=== PATIENT | male | born 1960 | race Hispanic/Latino ===

== ENCOUNTER 2017-08-16 06:22 | Observation (INO) | payer OTHER ==
[2017-08-15 12:19] VITALS: BP 154/95
[2017-08-15] MEDS: CEFAZOLIN SODIUM 1 GM VIAL IVP SCH (13:45)
[2017-08-16] VITALS (22 sets, daily range): BP systolic 125–157; BP diastolic 74–109
[~2017-08-16] VITALS: Ht 175.3 cm; Wt 96.2 kg
[~2017-08-16 06:22] MED LIST: IRBE150T27 PO
[2017-08-16] MEDS ORDERED: LACTATED RINGERS 1000ML 1,000 ML IV ONE (07:19)
[2017-08-16] MEDS ORDERED: GLYCOPYRROLATE 0.2 MG/ML 5 ML VIAL ONE (07:32)
[2017-08-16] MEDS ORDERED: LIDOCAINE PF 2% 5ML ABBOJECT ONE (07:32)
[2017-08-16] MEDS ORDERED: DEXAMETHASONE SOD PHOSPHATE 10MG/ML 1ML VIAL ONE (07:32)
[2017-08-16] MEDS ORDERED: ONDANSETRON HCL 4 MG/2 ML VIAL ONE (07:32)
[2017-08-16] MEDS ORDERED: MIDAZOLAM HCL 1 MG/ML 2ML VIAL ONE (07:33)
[2017-08-16] MEDS ORDERED: PROPOFOL 10 MG/ML 20ML VIAL IV ONE (07:33)
[2017-08-16] MEDS ORDERED: FENTANYL CITRATE PF 50 MCG/1 ML 2ML VIAL ONE (07:33)
[2017-08-16] MEDS: CEFAZOLIN SODIUM 1 GM VIAL IVP SCH ×3 (08:00→21:19)
[2017-08-16] MEDS ORDERED: EPHEDRINE SULFATE 50 MG/ML AMPULE ONE (08:49)
[2017-08-16] MEDS ORDERED: MEPERIDINE-PF 25 MG/ML SYG ONE ×2 (10:05→10:24)
[2017-08-16 10:37] LABS: HEMATOCRIT 39.1 % (42-54)
[2017-08-16] MEDS ORDERED: PROMETHAZINE HCL 25 MG/ML 1ML AMPULE IM PRN (13:30)
[2017-08-16] MEDS ORDERED: MORPHINE SULFATE 10 MG/ML 1ML SYG IM PRN (13:30)
[2017-08-16] MEDS ORDERED: BISACODYL 10 MG SUPP.RECT RC PRN (13:30)
[2017-08-16] MEDS ORDERED: MAGNESIUM HYDROXIDE 30 ML/UDCUP PO PRN (13:30)
[2017-08-16] MEDS: DEXTROSE 5%-LACTATED RINGERS 1,000 ML IV SCH ×2 (13:44→22:01)
[2017-08-16] MEDS ORDERED: HYDRALAZINE HCL 20 MG/ML VIAL ONE (14:54)
[2017-08-16] MEDS ORDERED: HYDRALAZINE HCL 20 MG/ML VIAL IV PRN (15:00)
[2017-08-16] MEDS ORDERED: METOPROLOL TARTRATE 1 MG/ML 5ML VIAL IV ONE ×2 (16:11→17:20)
[2017-08-16 16:57] LABS: CREATINE KINASE MB 2.4 ng/mL (0.5-3.6); CREATINE KINASE, TOTAL 218 U/L (21-232); MYOGLOBIN 118 ng/mL (10-92); TROPONIN I < 0.04 ng/mL (0.00-0.06)
[2017-08-16] MEDS ORDERED: ONDANSETRON HCL MDV 20ML 2 MG/ML VIAL IVP PRN (17:00)
[2017-08-16 18:21] LABS: HEMATOCRIT 41.2 % (42-54)
[2017-08-16] MEDS: TRAMADOL HCL 50 MG TABLET PO PRN (21:21)
[2017-08-16] MEDS ORDERED: ACETAMINOPHEN 325 MG TAB PO PRN (22:30)
[2017-08-16] MEDS ORDERED: ACETAMINOPHEN 325 MG TAB ONE (22:48)
[2017-08-16] MEDS: MORPHINE SULFATE 4 MG/1ML SYG IVP PRN (23:52)
[2017-08-17] VITALS (8 sets, daily range): BP systolic 138–167; BP diastolic 83–100
[2017-08-17 00:25] LABS: HEMATOCRIT 40.1 % (42-54)
[2017-08-17] MEDS: TRAMADOL HCL 50 MG TABLET PO PRN ×3 (03:23→17:34)
[2017-08-17 06:12] LABS: HEMATOCRIT 39.9 % (42-54)
[2017-08-17] MEDS: CEFAZOLIN SODIUM 1 GM VIAL IVP SCH (06:40)
[2017-08-17] MEDS: MORPHINE SULFATE 4 MG/1ML SYG IVP PRN ×2 (07:50→13:57)
[2017-08-17] MEDS ORDERED: TRAM50TA2 PO (09:59)
[2017-08-17] MEDS ORDERED: METOPROLOL TARTRATE 1 MG/ML 5ML VIAL IV SCH (13:33)
[2017-08-17] MEDS ORDERED: METOPROLOL TARTRATE 1 MG/ML 5ML VIAL IV ONE (13:40)
[2017-08-17] MEDS: METOPROLOL TARTRATE 25 MG TAB PO SCH ×2 (17:27→19:47)
[2017-08-18] VITALS (8 sets, daily range): BP systolic 135–164; BP diastolic 90–104
[2017-08-18] MEDS: MORPHINE SULFATE 4 MG/1ML SYG IVP PRN ×2 (02:16→07:50)
[2017-08-18] MEDS: METOPROLOL TARTRATE 25 MG TAB PO SCH (07:49)
[2017-08-18] MEDS: TRAMADOL HCL 50 MG TABLET PO PRN (16:49)
[2017-08-18] MEDS: METOPROLOL TARTRATE 1 MG/ML 5ML VIAL IV SCH (17:28)
[2017-08-18] MEDS: METOPROLOL TARTRATE 50 MG TAB PO SCH (21:29)
[2017-08-19] MEDS: TRAMADOL HCL 50 MG TABLET PO PRN ×3 (01:18→13:57)
[2017-08-19 05:00] VITALS: BP 126/81
[2017-08-19 07:39] VITALS: BP 144/95
[2017-08-19] MEDS: METOPROLOL TARTRATE 50 MG TAB PO SCH (08:40)
[2017-08-19] MEDS ORDERED: METO50 PO (09:41)
[2017-08-19 11:26] VITALS: BP 131/83
[2017-08-19] MEDS: METOPROLOL TARTRATE 1 MG/ML 5ML VIAL IV SCH (14:55)
[2017-08-19 16:14] VITALS: BP 140/98
== END 2017-08-19 17:51 | disposition home or self-care (01) ==
LOC: DAHIP 06:22 → EDSTATUS 07:30 → 4BH 11:15
DX: M75.101 Unspecified rotator cuff tear or rupture of right shoulder, not specified as traumatic (principal); M75.41 Impingement syndrome of right shoulder; I10 Essential (primary) hypertension; M25.712 Osteophyte, left shoulder; M25.752 Osteophyte, left hip
CPT/HCPCS: 23412; 36415 ×2; 76770; 82550; 82553; 83874; 84484; 85014 ×4; 85018 ×4; 88304; 88311; 93005; 94760; 96374; 96375 ×2; 96376 ×3; 97116; 97161; A4218 ×3; A4606; A4930; A6223; C1713 ×2; G0378 ×84; G8978; G8979; G8980; G8981; G8982; G8983; J0360 ×2; J0690 ×4; J1100; J2001; J2175 ×2; J2250; J2270 ×5; J2405; J2704; J3010; J3490 ×6; J7120

== ENCOUNTER 2018-02-07 05:20 | Emergency (ER) | payer OTHER ==
[~2018-02-07 05:20] MED LIST changes: +METO50 PO; +TRAM50TA2 PO
[2018-02-07 05:42] LABS: BASOPHILS % (AUTO) 0.7 % (0.0-5.0); EOSINOPHILS % (AUTO) 1.1 % (0.0-8.0); LYMPHOCYTES % (AUTO) 23.4 % (21.0-51.0); MEAN CORPUSCULAR HEMOGLOBIN 29.1 pg (27.0-33.0); MEAN CORPUSCULAR HGB CONC 33.8 g/dL (32.0-36.0); MONOCYTES % (AUTO) 6.7 % (3.0-13.0); NEUTROPHILS % (AUTO) 68.1 % (40.0-77.0); PLATELET COUNT (AUTO) 218 K/uL (130-400); RED BLOOD CELL COUNT(AUTO) 4.77 MIL/uL (4.50-6.20); RED CELL DISTRIBUTION WIDTH 13.8 % (11.0-15.5); WHITE BLOOD COUNT (AUTO) 5.5 K/uL (4.8-10.8)
[2018-02-07 05:49] LABS: POTASSIUM 3.7 mmol/L (3.5-5.1)
[2018-02-07 05:54] LABS: ALBUMIN 3.7 g/dL (3.5-5.0); BILIRUBIN,TOTAL 0.2 mg/dL (0.2-1.0); TOTAL PROTEIN, SERUM 7.5 g/dL (6.0-8.3)
[2018-02-07] MEDS ORDERED: MECLIZINE HCL 25 MG TABLET ONE (06:05)
[2018-02-07] MEDS ORDERED: ONDANSETRON HCL 4 MG/2 ML VIAL ONE (06:05)
== END 2018-02-07 07:41 | disposition home or self-care (01) ==
LOC: EDH 05:20
DX: R42 Dizziness and giddiness (principal); R11.2 Nausea with vomiting, unspecified; R61 Generalized hyperhidrosis; R53.83 Other fatigue; I10 Essential (primary) hypertension
CPT/HCPCS: 36415; 70450; 80053; 84484; 85025; 93005; 96374; 99285; J2405